=== PATIENT | female | born 1955 | race Caucasian/White ===

== ENCOUNTER 2016-07-18 06:45 | Inpatient (IN) | payer MEDICAID ==
[~2016-07-18] VITALS: Ht 170.2 cm; Wt 66.3 kg
[2016-07-18] MEDS ORDERED: METR500T4 PO (07:23)
[2016-07-18] MEDS ORDERED: LORA10TA62 PO (07:23)
[2016-07-18] MEDS ORDERED: SULF1TAB24 PO (07:23)
[2016-07-18] MEDS ORDERED: SERT100T5 PO (07:23)
[2016-07-18] MEDS ORDERED: NAPR-763 PO (07:23)
[2016-07-18] MEDS ORDERED: LOVA40TA2 PO (07:23)
[2016-07-18] MEDS ORDERED: LETR2.5T PO (07:23)
[2016-07-18] MEDS ORDERED: MYLAN PO (07:23)
[2016-07-18] MEDS ORDERED: ONDA-39 PO (07:23)
[2016-07-18] MEDS ORDERED: SODIUM CHLORIDE FLUSH 10ML SYR IVF PRN (07:30)
[2016-07-18] MEDS ORDERED: SODIUM CHLORIDE 0.9% 1,000 ML IV SCH (08:09)
[2016-07-18] MEDS ORDERED: DOCUSATE 100 MG CAPSULE PO PRN (08:30)
[2016-07-18] MEDS ORDERED: ENOXAPARIN 40 MG/0.4 ML SQ SCH (08:30)
[2016-07-18] MEDS ORDERED: LORazepam 2 MG/ML, 1ML IVPush PRN (08:30)
[2016-07-18] MEDS ORDERED: DIPHENHYDRAMINE 50 MG/ML, 1ML IVPush PRN (08:30)
[2016-07-18] MEDS ORDERED: ACETAMINOPHEN 325 MG TABLET PO PRN (08:30)
[2016-07-18] MEDS ORDERED: POLYETHYLENE GLYCOL 17 GM PACKET PO PRN (08:30)
[2016-07-18] MEDS ORDERED: HYDROcodone/APAP 5/325 TABLET PO PRN (08:30)
[2016-07-18] MEDS ORDERED: ONDANSETRON 2MG/ML, 2ML IVP PRN (08:30)
[2016-07-18 08:53] VITALS: BP 106/67
[2016-07-18] MEDS ORDERED: FAMOTIDINE 20 MG/2 ML IV SCH (09:00)
[2016-07-18 09:27] LABS: ASPARTATE AMINO TRANSFERASE 7 U/L (15-37); BLOOD UREA NITROGEN 15 mg/dL (7-18)
[2016-07-18] MEDS: CIPROFLOXACIN/PMX 400MG/200ML 200 ML IV SCH ×2 (10:58→22:08)
[2016-07-18] MEDS: methylPREDNISolone SOD SUCC 125 MG/2 ML IVPush SCH ×2 (10:58→17:58)
[2016-07-18] MEDS: NAPROXEN 500 MG TABLET PO SCH ×2 (11:00→21:55)
[2016-07-18] MEDS: SERTRALINE 100MG TABLET PO SCH (11:00)
[2016-07-18 12:43] LABS: PATH.CAST-FLAG NOT PRESENT; SPERM-FLAG NOT PRESENT; SRC-FLAG NOT PRESENT; XTAL-FLAG NOT PRESENT; YLC-FLAG NOT PRESENT
[2016-07-18 14:50] VITALS: BP 142/71
[2016-07-18 20:00] VITALS: BP 128/58
[2016-07-18 21:39] VITALS: BP 128/58
[2016-07-18] MEDS: LOVASTATIN 40 MG TABLET PO SCH (21:56)
[2016-07-19] MEDS: methylPREDNISolone SOD SUCC 125 MG/2 ML IVPush SCH ×3 (01:18→22:03)
[2016-07-19 02:00] VITALS: BP 136/68
[2016-07-19 05:31] LABS: ASPARTATE AMINO TRANSFERASE 8 U/L (15-37); BLOOD UREA NITROGEN 17 mg/dL (7-18)
[2016-07-19 07:06] VITALS: BP 123/67
[2016-07-19] MEDS: SERTRALINE 100MG TABLET PO SCH (08:45)
[2016-07-19] MEDS: NAPROXEN 500 MG TABLET PO SCH ×2 (08:45→23:14)
[2016-07-19] MEDS: CIPROFLOXACIN/PMX 400MG/200ML 200 ML IV SCH ×2 (08:46→22:03)
[2016-07-19 15:24] VITALS: BP 158/79
[2016-07-19] MEDS: ENOXAPARIN 40 MG/0.4 ML SQ SCH (15:37)
[2016-07-19 19:21] VITALS: BP 129/66
[2016-07-19] MEDS: LOVASTATIN 40 MG TABLET PO SCH (22:03)
[2016-07-20 04:35] VITALS: BP 126/76
[2016-07-20 05:41] LABS: ASPARTATE AMINO TRANSFERASE 7 U/L (15-37); BLOOD UREA NITROGEN 21 mg/dL (7-18)
[2016-07-20 07:22] VITALS: BP 147/78
[2016-07-20] MEDS: SERTRALINE 100MG TABLET PO SCH (08:23)
[2016-07-20] MEDS: NAPROXEN 500 MG TABLET PO SCH (08:23)
[2016-07-20] MEDS: methylPREDNISolone SOD SUCC 125 MG/2 ML IVPush SCH (08:24)
[2016-07-20] MEDS: CIPROFLOXACIN/PMX 400MG/200ML 200 ML IV SCH (10:10)
[2016-07-20] MEDS: ENOXAPARIN 40 MG/0.4 ML SQ SCH (13:31)
[2016-07-20 13:40] VITALS: BP 155/78
[2016-07-20] MEDS ORDERED: CIPR250T27 PO (14:50)
[2016-07-20] MEDS ORDERED: OMNIPAQUE 350 MG/ML, 100ML BOTTLE ONE (16:49)
== END 2016-07-20 17:15 | disposition home or self-care (01) | DRG 915 ==
LOC: ED 07:14 → EDIP 07:15 → ED 07:37 → 4WST 08:31 → 3NW 07-19 17:11
PROVIDERS: ADMIT Family Medicine; ATTEND Family Medicine
DX: T78.3XXA Angioneurotic edema, initial encounter (principal); J96.00 Acute respiratory failure, unspecified whether with hypoxia or hypercapnia; K57.92 Diverticulitis of intestine, part unspecified, without perforation or abscess without bleeding; K63.2 Fistula of intestine; N39.0 Urinary tract infection, site not specified; J98.11 Atelectasis; Z85.3 Personal history of malignant neoplasm of breast; D72.828 Other elevated white blood cell count; E78.5 Hyperlipidemia, unspecified; F17.210 Nicotine dependence, cigarettes, uncomplicated; F32.9 Major depressive disorder, single episode, unspecified; I10 Essential (primary) hypertension; K52.9 Noninfective gastroenteritis and colitis, unspecified; Z80.9 Family history of malignant neoplasm, unspecified; Z82.49 Family history of ischemic heart disease and other diseases of the circulatory system; Z90.10 Acquired absence of unspecified breast and nipple; Z79.899 Other long term (current) drug therapy; Z88.5 Allergy status to narcotic agent; Z88.0 Allergy status to penicillin; Z90.710 Acquired absence of both cervix and uterus; Z90.49 Acquired absence of other specified parts of digestive tract; Z88.2 Allergy status to sulfonamides
CPT/HCPCS: 36415; 74177; 80053; 81001; 85025; 87086; 87324; 96374; 96375; J0744; J1650; Q9967; J1200; J2930